=== PATIENT | male | born 1945 | race Caucasian/White ===

== ENCOUNTER 2017-09-08 11:12 | Emergency (ER) | payer OTHER ==
[~2017-09-08] VITALS: Ht 182.9 cm; Wt 105.0 kg
[~2017-09-08 11:12] MED LIST: AMLO10 PO; CRES10TA PO; FENO160T PO; GLUCTAB PO; GLYB1TAB51 PO; HYDR-2768 PO; LOSA100T PO; META48.54 PO; METO50TA PO; NOVONP2 SQ; TAB-TAB PO; VITA100017 PO; VITA20002 PO
[2017-09-08 11:17] VITALS: BP 149/72; PULSE 89; RESP 15; TEMP 98.3; O2SAT 99
[2017-09-08] MEDS ORDERED: PIPERACIL-TAZO 4.5 GM PREMIX 100 ML IV STA (12:29)
[2017-09-08] MEDS ORDERED: VANCOMYCIN INJ 1,000 MG in SODIUM CHLOR 0.9% 250 ML INJ 250 ML IV STA (12:29)
[2017-09-08] MEDS ORDERED: SODIUM CHLORIDE 0.9% FLUSH 10 ML FLUSH IV FLUSH PRN (12:30)
[2017-09-08 12:31] VITALS: BP 143/77; PULSE 89; RESP 18; O2SAT 100
[2017-09-08 12:32] VITALS: RESP 22; O2SAT 98
--- NOTE | 2017-09-08 12:36 | PD ---
HPI Chief Complaint: Skin Problem Time Seen by Provider: 12:23 Travel History International Travel<30 days: No Contact w/Intl Traveler<30days: No Traveled to known affect area: No History of Present Illness HPI Patient comes emergency department after being evaluated in urgent care for her left-sided facial cellulitis. Patient states that 4 days ago he began having pain redness at the base of his left naris began spread the past 2 days to his left zygomatic arch. Patient reports temperature at home 100.1. Patient states he thought it was getting better until it started spreading. Patient reports using Neosporin for this. Describes pain as burning-like sensation without radiation. Touching it makes it worse. Patient believes it started after he plucked a nose hair. Denies any headache, change in vision, neck pain , difficulty swallowing, chest pain, shortness of breath, or dizziness. PFSH Past Medical History Cancer: No Cardiovascular Problems: No Diabetes: Yes Patient Takes Glucophage: Yes (09/08/2017 @ 0800) Endocrine: Yes (diabetes) Genitourinary: No Hepatitis: No Hiatal Hernia: No Hypertension: Yes Immune Disorder: No Inguinal Hernia: Yes Musculoskeletal: No Neurologic: No Psychiatric: No Reproductive: Yes (BPH) Respiratory: No Thyroid Disease: Yes (nodules on thyroid removed) Past Surgical History Abdominal Surgery: No Cardiac Surgery: No Ear Surgery: No Endocrine Surgery: Yes (nodules removed) Eye Surgery: Yes (cataract) Genitourinary Surgery: No Gynecologic Surgery: No Oral Surgery: No Pacemaker: No Thoracic Surgery: No Social History Alcohol Use: No Tobacco Use: No Substance Use: No Allergies-Medications (Allergen,Severity, Reaction): Coded Allergies: No Known Allergies (Unverified Allergy, Unknown, 09/08/17) Reported Meds & Prescriptions Reported Meds & Active Scripts Active Keflex (Cephalexin) 500 Mg Cap 500 Mg PO Q12H 10 Days Bactrim DS (Sulfamethoxazole-Trimethoprim) 800-160 Mg Tab 1 Tab PO BID Reported Humulin N Inj (Insulin Human NPH) 1,000 Unit/10 Ml Vial SQ ACHS PER SLIDING SCALE Metformin (Metformin HCl) Unknown Strength Tab 1 Tab PO BIDPC Crestor (Rosuvastatin Calcium) Unknown Strength Tab 1 Tab PO DAILY Review of Systems Except as stated in HPI: all other systems reviewed are Neg Physical Exam Narrative GENERAL: Well-developed, overly nourished, in no acute distress, and non-ill appearing. SKIN: Mildly erythematous indurated area skin the left naris going into the left zygomatic arch. Is tender to palpation. There is no fluctuation or crepitus. No visible or palpable abscess noted. HEAD: Atraumatic. Normocephalic. EYES: Pupils equal and round. EOMI. No scleral icterus. No injection or drainage. ENT: No nasal bleeding or discharge. Mucous membranes pink and moist. NECK: Trachea midline. No cervical lymphadenopathy. Supple. No nuclear rigidity. RESPIRATORY: No accessory muscle use. No respiratory distress. MUSCULOSKELETAL: No obvious deformities. No clubbing. No cyanosis. No edema. Full range of motion. NEUROLOGICAL: Awake and alert. No obvious cranial nerve deficits. Motor grossly within normal limits. Normal speech. PSYCHIATRIC: Appropriate mood and affect; insight and judgment normal. Data Data Last Documented VS Vital Signs Date Time Temp Pulse Resp B/P (MAP) Pulse Ox O2 Delivery O2 Flow Rate FiO2 09/08/17 12:32 22 (99) 98 Room Air 09/08/17 12:31 89 09/08/17 11:17 98.3 Orders Orders Piperacil-Tazo 4.5 Gm Premix (Zosyn 4.5 (09/08/17 12:29) Vancomycin Inj (Vancomycin Inj) (09/08/17 12:29) Basic Metabolic Panel (Bmp) (09/08/17 12:29) Complete Blood Count With Diff (09/08/17 12:29) Prothrombin Time / Inr (Pt) (09/08/17 12:29) Act Partial Throm Time (Ptt) (09/08/17 12:29) Iv Access Insert/Monitor (09/08/17 12:29) Ecg Monitoring (09/08/17 12:29) Oximetry (09/08/17 12:29) Sodium Chloride 0.9% Flush (Ns Flush) (09/08/17 12:30) Ct Facial Bones W Iv Contrast (09/08/17 ) Sodium Chlorid 0.9% 500 Ml Inj (Ns 500 M (09/08/17 13:15) Iohexol 350 Inj (Omnipaque 350 Inj) (09/08/17 14:10) Ed Discharge Order (09/08/17 15:54) Labs Laboratory Tests Test 09/08/17 12:35 White Blood Count 16.5 TH/MM3 Red Blood Count 4.75 MIL/MM3 Hemoglobin 14.3 GM/DL Hematocrit 42.0 % Mean Corpuscular Volume 88.3 FL Mean Corpuscular Hemoglobin 30.1 PG Mean Corpuscular Hemoglobin Concent 34.0 % Red Cell Distribution Width 14.0 % Platelet Count 230 TH/MM3 Mean Platelet Volume 8.7 FL Neutrophils (%) (Auto) 81.5 % Lymphocytes (%) (Auto) 11.6 % Monocytes (%) (Auto) 5.8 % Eosinophils (%) (Auto) 0.5 % Basophils (%) (Auto) 0.6 % Neutrophils # (Auto) 13.4 TH/MM3 Lymphocytes # (Auto) 1.9 TH/MM3 Monocytes # (Auto) 1.0 TH/MM3 Eosinophils # (Auto) 0.1 TH/MM3 Basophils # (Auto) 0.1 TH/MM3 CBC Comment DIFF FINAL Differential Comment Prothrombin Time 11.1 SEC Prothromb Time International Ratio 1.1 RATIO Activated Partial Thromboplast Time 30.8 SEC Blood Urea Nitrogen 21 MG/DL Creatinine 1.78 MG/DL Random Glucose 168 MG/DL Calcium Level 9.8 MG/DL Sodium Level 140 MEQ/L Potassium Level 4.4 MEQ/L Chloride Level 108 MEQ/L Carbon Dioxide Level 22.5 MEQ/L Anion Gap 10 MEQ/L Estimat Glomerular Filtration Rate 38 ML/MIN MDM Medical Decision Making Medical Screen Exam Complete: Yes Emergency Medical Condition: Yes Interpretation(s) Last Impressions Maxillofacial CT 09/08/17 0000 Signed Impressions: Service Date/Time: Friday, September 08, 2017 13:55 - CONCLUSION: 1. Pre-septal left-sided periorbital soft tissue swelling. 2. Left facial inflammation and suspected small subcutaneous abscess posterior to the left nostril. 3. Intact bony structures. Donn Solomon MD Differential Diagnosis Abscess, cellulitis, folliculitis, gangrene Narrative Course The patient has cellulitis. There is no evidence of necrotizing fasciitis/ Foreign at this time, pain is proportional and no crepitus is noted. There is no evidence of abscess as well at this time. The patient will be discharged on antibiotics. The patient was given signs and symptoms warnings for worsening infection, such as spreading of redness, increasing pain, and/or swelling, associated heat, or fever and instructed to return immediately if these signs or symptoms worsen. The patient is to follow up with physician in 2 days for recheck or return here in 2 days for recheck if unable to establish outpatient follow up. Sooner if worsens or as needed. The patient agrees with plan. Patient in no obvious distress upon re-evaluation. All pertinent laboratory/ Radiology result(s) discussed with patient. Discussed patient with Dr. Rios prior to discharge, who saw and evaluated the patient and is in agreement with plan of care and disposition. Any questions/concerns in reference to patient diagnosis/condition discussed and clarified prior to patient's discharge. Reinforced sheer importance of close follow up with patient's primary physician or primary care clinic. Instructed patient to return to ED immediately, if symptoms return/worsen. Patient showed understanding of above instructions. Further instructions and recommendations were detailed in discharge paperwork. Patient ambulated without difficulty out of ED at discharge. Physician Communication Physician Communication [phone] Cordero, craniofacial surgeon on-call, who reviewed patient's CAT scan does not feel as if there is anything to drain. Diagnosis Primary Impression: Facial cellulitis Patient Instructions: Cellulitis (ED), General Instructions Additional Instructions: Follow-up with here in 2 days for recheck. Take all medication as prescribed. Apply warm compresses to affected area multiple times throughout the day to promote maturity. Return to the emergency department if symptoms get worse. Med/Other Pt SpecificInfo: Prescription(s) given Scripts Cephalexin (Keflex) 500 Mg Cap 500 MG PO Q12H for Infection for 10 Days, #20 CAP 0 Refills Prov: Troy Rios MD 09/08/17 Sulfamethoxazole-Trimethoprim (Bactrim DS) 800-160 Mg Tab 1 TAB PO BID for Infection, #20 TAB 0 Refills Prov: Troy Rios MD 09/08/17 Disposition: 01 DISCHARGE HOME Condition: Stable Micky Hennessy Sep 08, 2017 12:36
[2017-09-08] MEDS ORDERED: INSU100V3 SQ (12:47)
[2017-09-08] MEDS ORDERED: METF1000 PO (12:47)
[2017-09-08] MEDS ORDERED: ROSU10 PO (12:47)
[2017-09-08 12:51] LABS: AUTOMATED NEUTROPHIL # 13.4 TH/MM3 (1.8-7.7); BASOPHIL # 0.1 TH/MM3 (0-0.2); BASOPHIL % 0.6 % (0.0-2.0); EOSINOPHIL # 0.1 TH/MM3 (0-0.4); EOSINOPHIL % 0.5 % (0.0-4.0); HEMOGLOBIN 14.3 GM/DL (13.0-17.0); LYMPH % 11.6 % (9.0-44.0); LYMPHOCYTE # 1.9 TH/MM3 (1.0-4.8); MEAN CELL VOLUME 88.3 FL (80.0-100.0); MEAN CORPUSCULAR HEMOGLOBIN 30.1 PG (27.0-34.0); MEAN PLATELET VOLUME 8.7 FL (7.0-11.0); MONO % 5.8 % (0.0-8.0); NEUT % 81.5 % (16.0-70.0); PLATELET COUNT 230 TH/MM3 (150-450); RED BLOOD COUNT 4.75 MIL/MM3 (4.50-5.90); WHITE BLOOD COUNT 16.5 TH/MM3 (4.0-11.0)
[2017-09-08 13:00] LABS: INTERNATIONAL NORMALIZED RATIO 1.1 RATIO; PROTHROMBIN TIME - PATIENT 11.1 SEC (9.8-11.6)
[2017-09-08 13:08] LABS: BICARBONATE 22.5 MEQ/L (21.0-32.0); CALCIUM 9.8 MG/DL (8.5-10.1); CREATININE 1.78 MG/DL (0.60-1.30)
[2017-09-08] MEDS ORDERED: SODIUM CHLORID 0.9% 500 ML INJ 500 ML IV ONE (13:15)
[2017-09-08] MEDS ORDERED: IOHEXOL 350 MG/ML 10 ML VIAL (for RAD DIAG) IVCONTRAST ONE (14:10)
--- NOTE | 2017-09-08 14:18 | RADRPT ---
EXAM DATE/TIME: 09/08/2017 13:55 [facility] COMPARISON: No previous studies available for comparison. INDICATIONS : swelling left cheek, possible cellulitis. IV CONTRAST: 75 cc Omnipaque 350 (iohexol) IV RADIATION DOSE: 48.08 CTDIvol (mGy) MEDICAL HISTORY : Hypertension. Diabetes, BPH, Ing hernia SURGICAL HISTORY : none listed ENCOUNTER: Initial ACUITY: 2 days PAIN SCALE: 4/10 LOCATION: Left facial under eye TECHNIQUE: Volumetric scanning of the facial bones was performed. Using automated exposure control and adjustme nt of the mA and/or kV according to patient size, radiation dose was kept as low as reasonably achiev able to obtain optimal diagnostic quality images. DICOM format image data is available electronicall y for review and comparison. FINDINGS: ORBITS: Left-sided pre-septal periorbital inflammation is noted. The orbital and infraorbital osseous structu res are intact. The retroconal structures have a normal configuration. No radiopaque foreign bodies are seen. NASAL BONE: The nasal bone and maxillary spine are intact ZYGOMATIC ARCHES: Symmetric without evidence of fracture. SINUSES: The maxillary, ethmoid and frontal sinuses are intact. No air-fluid levels seen. NASAL CAVITY: The nasal septum is intact and midline. The lacrimal ducts are intact. SOFT TISSUES: Posterior to the left nostril within the subcutaneous tissue of the left cheek there is focal inflamm ation and a small poorly defined fluid collection measuring 1.6 cm. The soft tissue swelling extends into the left upper lip. INTRACRANIAL: No intracranial air seen. CRIBIFORM PLATE: Grossly intact. CONCLUSION: 1. Pre-septal left-sided periorbital soft tissue swelling. 2. Left facial inflammation and suspected small subcutaneous abscess posterior to the left nostril. 3. Intact bony structures. Donn Solomon MD on September 08, 2017 at 14:12 Board Certified Radiologist. This report was verified electronically.
[2017-09-08] MEDS ORDERED: BACT800T5 PO (15:47)
[2017-09-08] MEDS ORDERED: CEPH-460 PO (15:47)
== END 2017-09-08 16:26 | disposition home or self-care (01) ==
LOC: NEPE 11:12
DX: L03.211 Cellulitis of face (principal); E11.9 Type 2 diabetes mellitus without complications; I10 Essential (primary) hypertension; N40.0 Benign prostatic hyperplasia without lower urinary tract symptoms; E07.9 Disorder of thyroid, unspecified; Z79.4 Long term (current) use of insulin; Z79.899 Other long term (current) drug therapy
CPT/HCPCS: 70487; 80048; 85025; 85610; 85730; 96365; 96367; 99284; J2543; J3370; J7040; J7050; Q9967

== ENCOUNTER 2017-09-10 10:05 | Emergency (ER) | payer OTHER, MEDICAID ==
[~2017-09-10] VITALS: Ht 182.9 cm; Wt 103.0 kg
[~2017-09-10 10:05] MED LIST changes: -AMLO10 PO; +BACT800T5 PO; +CEPH-460 PO; -CRES10TA PO; -FENO160T PO; -GLUCTAB PO; -GLYB1TAB51 PO; -HYDR-2768 PO; +INSU100V3 SQ; -LOSA100T PO; -META48.54 PO; +METF1000 PO; -METO50TA PO; -NOVONP2 SQ; +ROSU10 PO; -TAB-TAB PO; -VITA100017 PO; -VITA20002 PO
[2017-09-10 10:23] VITALS: BP 159/72; PULSE 81; RESP 17; TEMP 98.2; O2SAT 100
--- NOTE | 2017-09-10 10:42 | PD ---
HPI Chief Complaint: Facial Pain or Swelling Time Seen by Provider: 10:29 Travel History International Travel<30 days: No Contact w/Intl Traveler<30days: No Traveled to known affect area: No History of Present Illness HPI 72-year-old male presents to the emergency department for recheck of left-sided facial cellulitis that he was seen for on September 08. He has been taking Bactrim and Keflex as prescribed. He reports improvement in his symptoms. Denies pain to the area at all, even with pressure. Denies fever, vomiting. Reports crusted drainage that came out of his left nostril yesterday. Has been doing warm compresses to the area. Symptoms are mild in severity. No known aggravating factors. Relieved by antibiotics. [employer] his primary care provider. No known allergies. History of diabetes mellitus. Has no other medical complaints. No other modifying factors or associated signs and symptoms. PFSH Past Medical History Cancer: No Cardiovascular Problems: No Diabetes: Yes Patient Takes Glucophage: Yes Endocrine: Yes (diabetes) Genitourinary: No Hepatitis: No Hiatal Hernia: No Hypertension: Yes Immune Disorder: No Inguinal Hernia: Yes Musculoskeletal: No Neurologic: No Psychiatric: No Reproductive: Yes (BPH) Respiratory: No Thyroid Disease: Yes (nodules on thyroid removed) Tetanus Vaccination: Unknown Past Surgical History Abdominal Surgery: No Cardiac Surgery: No Ear Surgery: No Endocrine Surgery: Yes (nodules removed) Eye Surgery: Yes (cataract) Genitourinary Surgery: No Gynecologic Surgery: No Oral Surgery: No Pacemaker: No Thoracic Surgery: No Other Surgery: Yes Social History Alcohol Use: No Tobacco Use: No Substance Use: No Allergies-Medications (Allergen,Severity, Reaction): Coded Allergies: No Known Allergies (Unverified Allergy, Unknown, 09/10/17) Reported Meds & Prescriptions Reported Meds & Active Scripts Active Keflex (Cephalexin) 500 Mg Cap 500 Mg PO Q12H 10 Days Bactrim DS (Sulfamethoxazole-Trimethoprim) 800-160 Mg Tab 1 Tab PO BID Reported Humulin N Inj (Insulin Human NPH) 1,000 Unit/10 Ml Vial SQ ACHS PER SLIDING SCALE Metformin (Metformin HCl) Unknown Strength Tab 1 Tab PO BIDPC Crestor (Rosuvastatin Calcium) Unknown Strength Tab 1 Tab PO DAILY Review of Systems Except as stated in HPI: all other systems reviewed are Neg Physical Exam Narrative GENERAL: Well-nourished, well-developed male patient, in no acute distress; afebrile, nontoxic-appearing SKIN: There is a palpable indurated area to the left cheek, just lateral of the nose; which measures about 1.5 cm in diameter. It is nonfluctuant and there is no pointing or drainage on the surface of the face; there is crusted, purulent drainage noted to the lateral aspect of the inner left nostril. There is a zone of minimal inflammation and erythema around it but no lymphangitis. Minimal puffiness noted to the left lower eyelid; without signs of cellulitis and without orbital tenderness on palpation. HEAD: Atraumatic. Normocephalic. EYES: Pupils equal and round. No scleral icterus. No injection or drainage. ENT: Mucosa pink and moist. Airway patent. NECK: Trachea midline. CARDIOVASCULAR: Regular rate. RESPIRATORY: No accessory muscle use. GASTROINTESTINAL: Rounded. MUSCULOSKELETAL: No obvious deformities. No clubbing. No cyanosis. No edema. NEUROLOGICAL: Awake and alert. Oriented 3. No obvious cranial nerve deficits. Motor grossly within normal limits. Normal speech. PSYCHIATRIC: Appropriate mood and affect; insight and judgment normal. Data Data Last Documented VS Vital Signs Date Time Temp Pulse Resp B/P (MAP) Pulse Ox O2 Delivery O2 Flow Rate FiO2 09/10/17 10:23 98.2 81 17 159/72 (101) 100 Orders Orders Ed Discharge Order (09/10/17 10:42) Wound Culture And Gram Stain (09/10/17 10:42) MDM Medical Decision Making Medical Screen Exam Complete: Yes Emergency Medical Condition: Yes Medical Record Reviewed: Yes Differential Diagnosis Facial abscess, facial cellulitis, encounter for wound recheck Narrative Course This is a 72-year-old male that was seen here on September 08 for left-sided facial cellulitis and is here for recheck. He has been taking Bactrim and Keflex as prescribed with improvement in symptoms. He is afebrile and nontoxic- appearing. He denies fever, vomiting. There is an area in the inner left nostril that is draining purulent drainage. There is an area of induration palpable to the left facial cheek area and is without fluctuance. Wound culture obtained and is pending. Instructed patient to continue warm compresses and to continue his antibiotics as prescribed. Instructed patient to return in 48 hours for wound recheck. Instructed patient to follow up with primary care provider. Patient verbalizes understanding and agreement with treatment plan. Patient is medically cleared and stable for discharge. Discussed reasons to return to the emergency department. Patient agrees with treatment plan. The patients vital signs are stable and the patient is stable for outpatient follow-up and treatment. Patient discharged home, stable and in no acute distress. Diagnosis Primary Impression: Encounter for wound re-check Referrals: Primary Care Physician Patient Instructions: Abscess (ED), Cellulitis (ED), General Instructions Additional Instructions: Complete full course of antibiotics Warm compresses to the affected area Keep area clean and dry Ibuprofen or Tylenol as directed and as needed for pain and inflammation Follow-up with primary care provider Return to emergency department immediately with worsening of symptoms Med/Other Pt SpecificInfo: No Change to Meds, No Meds Exist/No RX given Disposition: 01 DISCHARGE HOME Condition: Stable Chani Bal Sep 10, 2017 10:42
== END 2017-09-10 10:50 | disposition home or self-care (01) ==
LOC: NEPK 10:05
DX: L03.211 Cellulitis of face (principal); B95.62 Methicillin resistant Staphylococcus aureus infection as the cause of diseases classified elsewhere; B96.89 Other specified bacterial agents as the cause of diseases classified elsewhere; E11.9 Type 2 diabetes mellitus without complications; I10 Essential (primary) hypertension; N40.0 Benign prostatic hyperplasia without lower urinary tract symptoms; Z79.4 Long term (current) use of insulin; Z79.84 Long term (current) use of oral hypoglycemic drugs; Z16.19 Resistance to other specified beta lactam antibiotics; Z16.11 Resistance to penicillins; Z16.29 Resistance to other single specified antibiotic
CPT/HCPCS: 86403; 87070; 87077; 87186; 87205; 99281